=== PATIENT | male | born 2000 | race Caucasian/White ===

== ENCOUNTER 2022-03-23 01:33 | Emergency (ER) | payer MEDICAID, SELFPAY ==
[2022-03-23 01:41] VITALS: BP 128/75; PULSE 98; RESP 18; TEMP 36.6; O2SAT 96; BMI 20.7
--- NOTE | 2022-03-23 01:50 | ED.GENADULT ---
HPI - General Adult General Stated complaint: crisis/ section 12 Time Seen by Provider: 03/23/22 01:45 Source: patient and EMS Mode of arrival: EMS Limitations: no limitations History of Present Illness HPI narrative: Patient comes to the emergency room via EMS. Patient was walking from his aunt's house towards his house, patient was crossing the street, someone saw him walking on the street, looked suspicious, call 911. PD started looking for the patient with lights and sirens, patient got scared and start running. Patient was eventually caught by PD. They gave him the choice of coming to the emergency room are being arrested. Patient has no history of SI or HI, no psychiatric history. Patient was is trying to get home and got scared when he started chasing him for no reason. Related Data Allergies Allergy/AdvReac Type Severity Reaction Status Date / Time Unable to Assess Allergy Unverified 03/23/22 01:50 Review of Systems Review of Systems: Constitutional : No Weight loss, No Fever, No Chills, No Night Sweats, No Fatigue, No Malaise ENT/Mouth : No Hearing loss, No Ear Pain, No Nasal Congestion, No Sinus Pain, No Hoarseness, No sore throat, No Rhinorrhea, No Swallowing Difficulty Eyes: No Eye Pain, No Swelling, No Redness, No Foreign Body, No Discharge, No Vision Changes Cardiovascular : No Chest Pain, No SOB, No Dyspnea on Exertion, No Orthopnea, No Edema, No Palpitations Respiratory : No Cough, No Sputum, No Wheezing, No Smoke Exposure, No Dyspnea Gastrointestinal : No Nausea, No Vomiting, No Diarrhea, No Constipation, No abdominal Pain, No Hematochezia, No Melena Genitourinary : no irregular bleeding, No Dysuria, No Urinary Frequency, No Hematuria, No Urinary Incontinence, No Urgency, No Flank Pain, No Urinary Flow Changes, No Hesitancy Musculoskeletal : No joint pain, No Myalgias, No Joint Swelling Skin : No Skin Lesions, No rash Neuro : No Weakness, No Numbness, No Paresthesias, No Loss of Consciousness, No Dizziness, No Headache Psych : No Anxiety/Panic, No Depression, No SI/HI/AH/VH, No Social Issues, Heme/Lymph: No Bruising, No Bleeding,No Lymphadenopathy Endocrine : No Polyuria, No Polydipsia, No Temperature Intolerance Physical Exam ED Const Other: Appearance: Alert. Oriented X3. No acute distress. Eyes: Pupils equal, round and reactive to light. ENT: Pharynx normal. Neck: Normal inspection. Neck supple. No lymph nodes noted. No crepitus CVS: Normal heart rate and rhythm. Pulses normal. Normal S1 and S2 Respiratory: No respiratory distress. Breath sounds normal. No Wheezing. No rales Abdomen: Soft and nontender. No rigidity. No distention. Skin: Skin warm and dry. Normal skin color. Normal skin turgor. Extremities: No lower extremity edema. No Lacerations. No Rash Neuro: Oriented X 3. No motor deficit. No sensory deficit. Moving all extremities. No slurred speech. CN 2 through 12 grossly intact Psych: calm, cooperative, normal affect Course Course Course Narrative: Seems that this all was a misunderstanding. Patient's physical exam is normal, patient has no history of anxiety, depression, patient is alert and oriented x3. Patient has a right. Is no reason to keep the patient here in the emergency room. Discharge Plan Discharge Clinical Impression: Normal physical exam Patient Disposition: Home, Self-Care Instructions: Normal Exam (ED) Additional Instructions: Please follow-up with your primary care physician tomorrow. If you have any worsening or new symptoms, please return to the emergency room or call 911
== END 2022-03-23 02:05 | disposition home or self-care (01) ==
LOC: HO.ED 02:02
PROVIDERS: Emergency Provider Emergency Medicine
DX: F43.0 Acute stress reaction (principal)
CPT/HCPCS: 99282

== ENCOUNTER 2022-03-23 12:35 | Emergency (ER) | payer MEDICAID, SELFPAY ==
[2022-03-23 12:47] VITALS: BP 114/79; BP 130/80; PULSE 100; PULSE 78; RESP 18; TEMP 36.5; BMI 17.9
--- NOTE | 2022-03-23 13:00 | ED.PSYCH ---
HPI - Psych General Chief Complaint: Psychiatric Symptoms Stated Complaint: SEC 12 BY [facility] FOR DEPRESSION PER EMS Time Seen by Provider: 03/23/22 12:54 Source: patient Mode of arrival: EMS Limitations: no limitations History of Present Illness HPI Narrative: 21-year-old male presents to the emergency department with a Section 12 for anxiety and depression. Patient denies suicidality patient was brought in by police to o'clock this morning and ran away he followed up with the gym today his mom also called [facility] and they put him on a Section patient states she states pain medications he states he is not suicidal does not have a plan. he is very adamant that he is only depressed and that is what told [employer] employee complaint: suicidal ideation, feels depressed and anxiety Related Data Allergies Allergy/AdvReac Type Severity Reaction Status Date / Time Unable to Assess Allergy Unverified 03/23/22 01:50 Review of Systems Review of Systems: Review of systems: General: Patient denies any fever chills recent illness or falls Musculoskeletal: Denies back pain or body aches or other injuries HEENT: denies headache, runny nose, ear pain Respiratory: denies shortness of breath, cough Cardiovascular: no chest pain or palpitations : denies dysuria, frequency Abdomen: no nausea vomiting denies abdominal pain Extremities: no swelling, no pain Skin: no diaphoresis Yes all other systems are reviewed and are negative PMFSH Past Medical History Attestation statement: The following information was validated with the patient. Physical Exam Vital Signs: Vital Signs: Last Vital Signs Temp 97.7 F 03/23/22 12:47 Pulse 78 03/23/22 12:47 Resp 18 03/23/22 12:47 BP 114/79 03/23/22 12:47 O2 Del Method 03/23/22 12:47 BMI result Body Mass Index 17.9 General: Well-appearing well-nourished in no signs of distress HEENT: Normocephalic atraumatic Neck: No signs of JVD, no masses no tenderness or lymphadenopathy Cardiovascular: Regular rate and rhythm Respiratory: Clear to auscultation bilaterally Abdomen: Soft nontender no masses Extremities: Normal pedal pulses no signs of edema Skin: Dry warm no rashes Back: No tenderness full ROM MDM - Psych MDM Narrative Medical decision making narrative: patient is on Section 12 from [facility] for depression and altered behavior I will continue the 2nd toe patient is already bed search. Lab Data Result diagrams: 03/23/22 13:25 03/23/22 13:25 Labs: Lab Results 03/23/22 Range/Units 13:25 WBC 7.9 (4.8-10.8) X10*3/uL RBC 5.32 (4.60-5.80) X10*6/uL Hgb 16.7 (14.0-18.0) g/dl Hct 49.1 (42.0-52.0) % MCV 92.3 (80.0-98.0) fL MCH 31.4 (27.0-33.0) pg MCHC 34.0 (31.0-36.0) g/dl RDW 12.6 (11.0-16.0) % Plt Count 292 (160-400) X10*3/uL MPV 8.9 L (9.4-12.4) fL Immature Gran % (Auto) 0.3 (0.0-0.4) % Neut % (Auto) 65.5 (45-73) % Lymph % (Auto) 24.5 (20-40) % [place] % (Auto) 9.0 (2-11) % Eos % (Auto) 0.4 (0-4) % Baso % (Auto) 0.3 (0-2) % Lymph # (Auto) 1.9 (1.2-4.9) X10*3/uL [place] # (Auto) 0.7 (0.1-1.2) X10*3/uL Eos # (Auto) 0.0 (0.0-0.4) X10*3/uL Baso # (Auto) 0.0 (0.0-0.2) X10*3/uL Abs Immat Gran (auto) 0.02 (0.00-0.03) X10*3/uL Absolute Neuts (auto) 5.2 (2.0-8.3) x10*3/uL Absolute Nucleated RBC 0.000 (0.0-0.012) X10*3/uL Nucleated RBC % (auto) 0.0 (0.0-0.2) /100WBC Discharge Plan Discharge Clinical Impression: Acute psychosis, Depression Patient Disposition: Still a Patient
[2022-03-23 13:32] LABS: Basophils Percent Auto 0.3 % (0-2); Eosinophils Percent Auto 0.4 % (0-4); Hematocrit 49.1 % (42.0-52.0); Hemoglobin 16.7 g/dl (14.0-18.0); Imm Gran Abs Auto 0.02 X10*3/uL (0.00-0.03); Imm Gran Pct Auto 0.3 % (0.0-0.4); Lymphocytes Absolute Auto 1.9 X10*3/uL (1.2-4.9); Lymphocytes Percent Auto 24.5 % (20-40); MANUAL DIFF FLAG NO; Mean Corpuscular Hemoglobin 31.4 pg (27.0-33.0); Mean Corpuscular Volume 92.3 fL (80.0-98.0); Mean Platelet Volume 8.9 fL (9.4-12.4); Monocytes Absolute Auto 0.7 X10*3/uL (0.1-1.2); Neutrophils Absolute Auto 5.2 x10*3/uL (2.0-8.3); Neutrophils Percent Auto 65.5 % (45-73); Platelet Count 292 X10*3/uL (160-400); Red Blood Count 5.32 X10*6/uL (4.60-5.80); Red Cell Distribution Width 12.6 % (11.0-16.0); White Blood Count 7.9 X10*3/uL (4.8-10.8)
[2022-03-23 13:45] LABS: COVID-19 Test Negative (Negative); IDNOW Serial# 9DB6401D
[2022-03-23 13:52] LABS: Amphetamine Screen Urine Not Detected (Not Detect); Barbiturates, Urine Not Detected (Not Detect); Benzodiazepines Screen Urine Not Detected (Not Detect); Cannabinoid Screen Urine POSITIVE (Not Detect); Cocaine Screen Urine Not Detected (Not Detect); Fentanyl, urine Not Detected (Not Detect); Opiate Screen Urine Not Detected (Not Detect); Phencyclidine Screen Urine Not Detected (Not Detect)
[2022-03-23 13:53] LABS: Alanine Aminotransferase 24 U/L (0-40); Albumin Level 4.6 g/dL (3.5-5.0); Alkaline Phosphatase 85 U/L (39-117); Anion Gap 11 (12-20); Aspartate Amino Transferase 20 U/L (5-37); Bilirubin Direct 0.5 mg/dL (0.0-0.5); Blood Urea Nitrogen 11 mg/dL (9-16); Calcium 9.6 mg/dL (8.4-10.2); Carbon Dioxide 28 mmol/L (22-29); Chloride 105 mmol/L (96-108); Creatinine Clr Calc Pharmacy 99.1; Estimated Glomerular Filt Rate > 60; Ethanol < 10 mg/dL; Glucose Random 113 mg/dL (60-115); Potassium 4.3 mmol/L (3.3-5.1); Sodium 140 mmol/L (135-145); Total Protein 7.7 g/dL (6.5-8.0)
[2022-03-23] MEDS: QUEtiapine Fumarate 100 MG TABLET PO (14:24)
[2022-03-23] MEDS: hydrOXYzine HCL 25 MG TABLET PO (14:24)
--- NOTE | 2022-03-23 17:25 | PC.NURSE ---
after talking to father patient complaining and pacing, declining offered coping tools (fidget, music, medications) worst day of my life etc etc. expressive.
[2022-03-23] MEDS: LORazepam 1 MG TABLET PO (18:03)
[2022-03-23 19:00] VITALS: BP 102/58; PULSE 93; RESP 20; TEMP 36.1; O2SAT 97
[2022-03-24 01:10] VITALS: BP 93/55; PULSE 70; RESP 16; TEMP 36.1; O2SAT 99
--- NOTE | 2022-03-24 04:54 | PC.NURSE ---
Patient slept through the night, no distress observed/reported, continuously denying adamantly SI/HI/AVH, behavior pleasant and non concerning at this time, patient is not on any medication, VSS, will continue to monitor.
--- NOTE | 2022-03-24 07:44 | PC.NURSE ---
patient appears to remain asleep at present respirations are even and unlabored patient appears in no distress
[2022-03-24] MEDS: hydrOXYzine HCL 25 MG TABLET PO (08:22)
[2022-03-24 08:39] VITALS: BP 118/69; PULSE 80; RESP 18; TEMP 36.8; O2SAT 99
--- NOTE | 2022-03-24 12:30 | PC.NURSE ---
claudine step mother asked progress with this check writer. informed step mother client declined CV and took step mother number [phone]
--- NOTE | 2022-03-24 13:37 | PC.NURSE ---
client declines meal.
== END 2022-03-24 16:22 | disposition home or self-care (01) ==
PROVIDERS: Student in an Organized Health Care Education/Training Program; Emergency Provider Emergency Medicine Emergency Medical Services
DX: F33.1 Major depressive disorder, recurrent, moderate (principal); Z79.899 Other long term (current) drug therapy; Z20.822 Contact with and (suspected) exposure to COVID-19
CPT/HCPCS: 80048; 80076; 80307; 82077; 85025; 87635; 99284